=== PATIENT | male | born 1985 | race Caucasian/White ===

== ENCOUNTER 2021-10-06 12:29 | Day surgery (SDC) | payer OTHER ==
[2021-10-06] MEDS ORDERED: LIDOCAINE HCL 2% 100 MG/5 ML IJ ONE (12:30)
[2021-10-06] MEDS ORDERED: DIPRIVAN 200 MG/20 ML IV ONE (13:30)
[2021-10-06] MEDS ORDERED: Lactated Ringers 1,000 ML IV ONE (15:31)
--- NOTE | 2021-10-06 17:25 | XRAY ---
Indication: Bilateral L4-S1 MBB. Intraoperative fluoroscopy provided for 10 seconds. Single digital spot image submitted for interpretation demonstrates posterior needle tips projecting over the expected left and right L4-S1 nerve roots. Correlate with intraoperative findings/report.
--- NOTE | 2021-10-06 17:45 | XRAY ---
10 seconds of fluoroscopy was used in surgery for a bilateral L4-S1 MBB.
== END 2021-10-06 13:55 | disposition home or self-care (01) ==
LOC: SDC-PAIN 12:29
PROVIDERS: ATTEND Psychiatry & Neurology Pain Medicine
DX: M47.816 Spondylosis without myelopathy or radiculopathy, lumbar region (principal); Z79.899 Other long term (current) drug therapy
CPT/HCPCS: 64493; 64494; 72020; 77002; J2704

== ENCOUNTER 2021-10-27 15:18 | Day surgery (SDC) | payer OTHER ==
[2021-10-27] MEDS ORDERED: BUPIVACAINE 0.5% VIAL IJ ONE (15:19)
[2021-10-27] MEDS ORDERED: Lactated Ringers 1,000 ML IV ONE (15:54)
[2021-10-27] MEDS ORDERED: DIPRIVAN 200 MG/20 ML IV ONE (16:30)
--- NOTE | 2021-10-27 18:21 | XRAY ---
Indication: Bilateral L4-S1 MBB. Intraoperative fluoroscopy provided for 9 seconds. Single digital spot image submitted for interpretation demonstrates posterior needle tips projecting over the expected left and right L4-S1 nerve roots. Correlate with intraoperative findings/report.
--- NOTE | 2021-10-28 09:54 | XRAY ---
9 seconds of fluoroscopy was used in surgery for a bilateral L4-S1 MBB.
== END 2021-10-27 17:00 | disposition home or self-care (01) ==
LOC: SDC-PAIN 15:18
PROVIDERS: ATTEND Psychiatry & Neurology Pain Medicine
DX: M47.816 Spondylosis without myelopathy or radiculopathy, lumbar region (principal); Z79.899 Other long term (current) drug therapy
CPT/HCPCS: 64493; 64494; 72020; 77002; J2704

== ENCOUNTER 2022-01-12 14:14 | Day surgery (SDC) | payer OTHER ==
[2022-01-12] MEDS ORDERED: BUPIVACAINE 0.5% VIAL IJ ONE (14:15)
[2022-01-12] MEDS ORDERED: Xylocaine 1% Vial 30 ML PF IJ ONE (14:15)
[2022-01-12] MEDS ORDERED: Depo-Medrol 40 MG/ML IM ONE (14:15)
[2022-01-12] MEDS ORDERED: DIPRIVAN 200 MG/20 ML IV ONE (16:49)
[2022-01-12] MEDS ORDERED: Lactated Ringers 1,000 ML IV ONE ×2 (16:51→18:09)
--- NOTE | 2022-01-12 19:44 | XRAY ---
Indication: Left L4-S1 RFA. Intraoperative fluoroscopy provided for 24 seconds. 4 digital spot submitted for interpretation demonstrates posterior needle tips projecting over the expected left L4-S1 nerve roots. Correlate with intraoperative findings/report.
--- NOTE | 2022-01-13 19:54 | XRAY ---
24 seconds of fluoroscopy was used in surgery for a left L4-S1 RFA.
== END 2022-01-12 17:25 | disposition home or self-care (01) ==
LOC: SDC-PAIN 14:14
PROVIDERS: ATTEND Psychiatry & Neurology Pain Medicine
DX: M47.816 Spondylosis without myelopathy or radiculopathy, lumbar region (principal); Z79.899 Other long term (current) drug therapy
CPT/HCPCS: 64635; 64636; 72100; 77002; J1030; J2001; J2704

== ENCOUNTER 2022-01-19 14:15 | Day surgery (SDC) | payer OTHER ==
[2022-01-19] MEDS ORDERED: XYLOCAINE-MPF 1% 5ML SDV IJ ONE (14:16)
[2022-01-19] MEDS ORDERED: BUPIVACAINE 0.5% VIAL IJ ONE (14:16)
[2022-01-19] MEDS ORDERED: Depo-Medrol 40 MG/ML IM ONE (14:16)
[2022-01-19] MEDS ORDERED: Lactated Ringers 1,000 ML IV ONE (16:45)
[2022-01-19] MEDS ORDERED: DIPRIVAN 200 MG/20 ML IV ONE (16:50)
--- NOTE | 2022-01-19 20:20 | XRAY ---
Indication: Right L4-S1 RFA. Intraoperative fluoroscopy provided for 16 seconds. 4 digital spot images submitted for interpretation demonstrates posterior needle tips projecting over the expected right L4-S1 nerve roots. Correlate with intraoperative findings/report.
--- NOTE | 2022-01-20 09:13 | XRAY ---
16 seconds of fluoroscopy was used in surgery for a right L4-S1 RFA.
== END 2022-01-19 17:20 | disposition home or self-care (01) ==
LOC: SDC-PAIN 14:15
PROVIDERS: ATTEND Psychiatry & Neurology Pain Medicine
DX: M47.816 Spondylosis without myelopathy or radiculopathy, lumbar region (principal); Z79.899 Other long term (current) drug therapy
CPT/HCPCS: 63685; 64635; 64636; 72100; 77002; J1030; J2704